=== PATIENT | female | born 1970 | race Caucasian/White ===

== ENCOUNTER 2017-06-17 15:18 | Emergency (ER) | payer BC ==
[~2017-06-17] VITALS: Ht 160 cm; Wt 56.7 kg
[~2017-06-17 15:18] MED LIST: FERROUS SULFAT325 MG ORAL; NORCO 5-325 TA1 EACH ORAL; ZOFRAN ODT4 MG ORAL
[2017-06-17 16:00] VITALS: BP 109/69
[2017-06-17 16:19] LABS: BASOPHILS % (AUTO) 1.5 % (0.0-2.0); EOSINOPHILS % (AUTO) 1.7 % (0.0-3.0); HEMATOCRIT 26.7 % (37.0-47.0); HEMOGLOBIN 8.2 G/DL (12.0-16.0); LYMPHOCYTES % (AUTO) 36.8 % (20.0-45.0); MEAN CORPUSCULAR VOLUME 78 FL (80-99); MONOCYTES % (AUTO) 11.6 % (1.0-10.0); NEUTROPHILS % (AUTO) 48.5 % (45.0-75.0); PLATELET COUNT 359 K/UL (150-450); RED CELL DISTRIBUTION WIDTH 16.4 % (11.6-14.8); WHITE BLOOD COUNT 5.2 K/UL (4.8-10.8)
[2017-06-17 16:30] LABS: INR 0.9 (0.9-1.1)
[2017-06-17 16:33] LABS: ANION GAP 8 mmol/L (5-15); BLOOD UREA NITROGEN 8 mg/dL (7-18); CALCIUM 8.6 MG/DL (8.5-10.1); CARBON DIOXIDE 27 MMOL/L (21-32); CHLORIDE 105 MMOL/L (98-107); CREATININE 0.7 MG/DL (0.55-1.30); POTASSIUM 3.8 MMOL/L (3.5-5.1); SODIUM 140 MMOL/L (136-145)
[2017-06-17 16:36] LABS: ALANINE AMINOTRANSFERASE 16 U/L (12-78); ALBUMIN 3.3 G/DL (3.4-5.0); ALKALINE PHOSPHATASE 61 U/L (46-116); ASPARTATE AMINO TRANSFERASE 22 U/L (15-37); BILIRUBIN,TOTAL 0.1 MG/DL (0.2-1.0)
[2017-06-17 16:55] LABS: APPEARANCE,URINE CLEAR; BILIRUBIN, URINE NEGATIVE (NEGATIVE); COLOR,URINE PALE YELLOW; GLUCOSE, URINE (UA) NEGATIVE (NEGATIVE); KETONES,URINE NEGATIVE (NEGATIVE); LEUKOCYTE ESTERASE ,URINE NEGATIVE (NEGATIVE); NITRITE,URINE NEGATIVE (NEGATIVE); PH,URINE 7 (4.5-8.0); PROTEIN,URINE NEGATIVE (NEGATIVE); UROBILINOGEN,URINE NORMAL MG/DL (0.0-1.0)
[2017-06-17] MEDS ORDERED: PRILOSEC10 M1 ORAL (17:21)
[2017-06-17 17:32] VITALS: BP 111/63
--- NOTE | 2017-06-17 17:44 | Emergency Room Report ---
History of Present Illness General Chief Complaint: Chest Pain Source: Patient, Medical Record Present Illness HPI Patient is a 47-year-old female presented to increased sharp left sided chest pain patient having increased nasal congestion cough. She denies any fever. She reported history of heavy. Had recently seen [employer] [employer]. Patient was given prescription for iron pill. Patient denied any leg pain or swelling. She reported having generalized malaise. Allergies: Uncoded Allergies: CONTROL PILLS (Adverse Reaction, Severe, MIGRAINES, 10/28/14) Patient History Past Medical History: see triage record Last Menstrual Period: 06/14/17 Reviewed Nursing Documentation: PMH: Agreed, PSxH: Agreed Nursing Documentation-PMH Past Medical History: No History, Except For Review of Systems All Other Systems: negative except mentioned in HPI Physical Exam Vital Signs Date Time Temp Pulse Resp B/P (MAP) Pulse Ox O2 Delivery O2 Flow Rate FiO2 06/17/17 15:23 98.2 71 18 122/55 100 Room Air Sp02 EP Interpretation: reviewed, normal General Appearance: normal inspection, well appearing, no apparent distress, alert Head: atraumatic ENT: normal ENT inspection, hearing grossly normal, normal voice, other - pale conjunctiva Neck: normal inspection, full range of motion, supple, no bony tend Respiratory: normal inspection, lungs clear, normal breath sounds, no respiratory distress, no retraction, no wheezing Cardiovascular #1: regular rate, rhythm, no edema Gastrointestinal: normal inspection, normal bowel sounds, non tender, soft, no guarding, no hernia Genitourinary: no CVA tenderness Musculoskeletal: normal inspection, back normal, normal range of motion Neurologic: normal inspection, alert, oriented x3, responsive, advisory software engineer III-XII nml as tested, speech normal Psychiatric: normal inspection, judgement/insight normal, mood/affect normal Skin: normal inspection, normal color, no rash Medical Decision Making Diagnostic Impression: Primary Impression: Anemia Additional Impression: Upper respiratory infection ER Course Differential diagnosis included but was not limited to acute coronary syndrome, pulmonary embolism, pneumonia, aortic dissection, anemia shingles, pneumothorax , aortic dissection, esophageal rupture, pericarditis. Patient has no known risk factors for pulmonary embolism and bedside ultrasound showed no evidence of pericardial effusion with normal cardiac motion. EKG interpreted by me showed normal sinus rhythm without acute ST or T wave changes. Laboratory testing was notable for anemia. The patient was given IV fluids as well as pain medications. Patient was advised to continue taking iron and to followup for reexamination and recheck of blood counts the next one to 2 days. EKG Diagnostic Results Rate: normal Rhythm: NSR ST Segments: no acute changes Last Vital Signs Date Time Temp Pulse Resp B/P (MAP) Pulse Ox O2 Delivery O2 Flow Rate FiO2 06/17/17 17:32 59 14 111/63 100 Room Air 06/17/17 16:00 98.1 Status: improved Disposition: HOME, SELF-CARE Condition: Stable Scripts Omeprazole Magnesium (PRILOSEC) 10 Mg Suspdr.pkt 10 MG ORAL DAILY, #30 PACKET Prov: Sadi Mandel 06/17/17 Patient Instructions: Nonspecific Chest Pain, Iron Deficiency Anemia, Adult Sadi Mandel Jun 17, 2017 17:44
[2017-06-17] MEDS ORDERED: Norco 5mg/325mg tab ORAL ONE (18:00)
[2017-06-17 18:51] VITALS: BP 116/68
--- NOTE | 2017-06-18 09:31 | Diagnostic Imaging Report ---
Indication: Reason For Exam: SOB Technique: XRAY Chest 1v Comparison: None. Findings: The cardiomediastinal silhouette is normal. The lungs are clear. There is no evidence of pleural fluid. The bones are unremarkable. Impression: Normal chest.
--- NOTE | 2017-06-28 17:35 | Cardiology Report ---
APPROVED REPORT EKG Measurement Heart [id number] Normal sinus rhythm Rightward axis Borderline ECG
== END 2017-06-17 18:51 | disposition home or self-care (01) ==
LOC: EMR 15:34
DX: D64.9 Anemia, unspecified (principal); J06.9 Acute upper respiratory infection, unspecified; R07.89 Other chest pain
CPT/HCPCS: 36415; 71045; 80053; 81003; 81025; 83690; 85025; 85610; 85730; 86850; 86870; 86900; 86901; 93005; 96361; 96374; 99284